=== PATIENT | male | born 1995 ===

== ENCOUNTER 2018-06-03 06:55 | Emergency (ER) | payer OTHER ==
[~2018-06-03] VITALS: Ht 182.9 cm; Wt 63.8 kg
[2018-06-03] MEDS ORDERED: ONDANSETRON ODT 4 MG ONE (07:12)
[2018-06-03] MEDS ORDERED: ONDANSETRON ODT 4 MG PO ONE (07:30)
[2018-06-03] MEDS ORDERED: LIDOCAINE 2%, 20ML INFIL ONE (07:30)
[2018-06-03] MEDS ORDERED: PLEASE ENTER HEIGHT AND WEIGHT MC SCH (07:30)
[2018-06-03] MEDS ORDERED: LIDOCAINE 1%-EPI 1:100K, 20ML ONE (09:15)
[2018-06-03] MEDS ORDERED: BACITRACIN ZINC OINT 500U/GM, 0.9 GM ONE (09:26)
[2018-06-03 11:17] VITALS: BP 99/48
== END 2018-06-03 12:02 | disposition left against medical advice (07) ==
LOC: ED 11:56
DX: S01.112A Laceration without foreign body of left eyelid and periocular area, initial encounter (principal); F10.220 Alcohol dependence with intoxication, uncomplicated; X58.XXXA Exposure to other specified factors, initial encounter; Y93.89 Activity, other specified; Y92.410 Unspecified street and highway as the place of occurrence of the external cause; Y99.8 Other external cause status
CPT/HCPCS: 13151; 36415; 70450; 70486; 72125; 80307; 99285; J3490; Q0162